=== PATIENT | female | born 1960 | race Hispanic/Latino ===

== ENCOUNTER 2017-12-15 18:18 | Emergency (ER) | payer BC ==
[2017-12-15 18:54] LABS: BASOPHILS % (AUTO) 1.9 % (0.0-5.0); EOSINOPHILS % (AUTO) 1.6 % (0.0-8.0); HEMATOCRIT 42.9 % (36-48); LYMPHOCYTES % (AUTO) 34.8 % (21.0-51.0); MEAN CORPUSCULAR HEMOGLOBIN 29.8 pg (27.0-33.0); MEAN CORPUSCULAR HGB CONC 32.9 g/dL (32.0-36.0); MEAN CORPUSCULAR VOLUME 90.6 fL (79-99); MONOCYTES % (AUTO) 5.6 % (3.0-13.0); NEUTROPHILS % (AUTO) 56.1 % (40.0-77.0); PLATELET COUNT (AUTO) 255 K/uL (130-400); RED BLOOD CELL COUNT(AUTO) 4.73 MIL/uL (4.00-5.50); RED CELL DISTRIBUTION WIDTH 13.1 % (11.0-15.5); WHITE BLOOD COUNT (AUTO) 6.9 K/uL (4.8-10.8)
[2017-12-15 19:05] LABS: CREATININE 0.7 mg/dL (0.5-1.5); POTASSIUM 3.8 mmol/L (3.5-5.1)
[2017-12-15 19:10] LABS: ALBUMIN 4.6 g/dL (3.5-5.0); BILIRUBIN,TOTAL 0.4 mg/dL (0.2-1.0); TOTAL PROTEIN, SERUM 8.6 g/dL (6.0-8.3)
[2017-12-15 19:12] LABS: INR 0.9 (0.85-1.15); PARTIAL THROMBOPLASTIN TIME 27.9 SEC (26.3-35.5); PROTHROMBIN TIME 9.5 SEC (9.6-11.6)
[2017-12-15 19:19] LABS: CREATINE KINASE, TOTAL 98 U/L (21-232); MYOGLOBIN 23 ng/mL (10-92); TROPONIN I < 0.04 ng/mL (0.00-0.06)
[2017-12-15 22:24] LABS: CREATINE KINASE, TOTAL 84 U/L (21-232); MYOGLOBIN 25 ng/mL (10-92); TROPONIN I < 0.04 ng/mL (0.00-0.06)
== END 2017-12-15 22:42 | disposition home or self-care (01) ==
LOC: EDH 18:18
DX: R07.89 Other chest pain (principal); Z88.0 Allergy status to penicillin; Z85.850 Personal history of malignant neoplasm of thyroid; Z98.890 Other specified postprocedural states
CPT/HCPCS: 36415; 71045; 80053; 82550; 83874; 84484; 85025; 85610; 85730; 93005; 99291

== ENCOUNTER 2018-03-02 05:51 | Day surgery (SDC) | payer BC ==
[2018-02-28 11:07] VITALS: BP 136/79
[2018-02-28 11:22] LABS: BASOPHILS % (AUTO) 2.6 % (0.0-5.0); EOSINOPHILS % (AUTO) 2.2 % (0.0-8.0); HEMATOCRIT 41.7 % (36-48); LYMPHOCYTES % (AUTO) 39.9 % (21.0-51.0); MEAN CORPUSCULAR HEMOGLOBIN 30.7 pg (27.0-33.0); MEAN CORPUSCULAR HGB CONC 33.8 g/dL (32.0-36.0); MEAN CORPUSCULAR VOLUME 90.9 fL (79-99); MONOCYTES % (AUTO) 8.3 % (3.0-13.0); PLATELET COUNT (AUTO) 255 K/uL (130-400); RED BLOOD CELL COUNT(AUTO) 4.59 MIL/uL (4.00-5.50); RED CELL DISTRIBUTION WIDTH 13.4 % (11.0-15.5); WHITE BLOOD COUNT (AUTO) 4.8 K/uL (4.8-10.8)
[~2018-03-02] VITALS: Ht 162.6 cm; Wt 70.8 kg
[2018-03-02] VITALS (17 sets, daily range): BP systolic 87–134; BP diastolic 51–89
[~2018-03-02 05:51] MED LIST: LEVO100T12 PO
[2018-03-02] MEDS ORDERED: LEVOFLOXACIN 500 MG/D5W 100 ML 100 ML ONE (06:45)
[2018-03-02] MEDS ORDERED: LACTATED RINGERS 1000ML 1,000 ML IV ONE (06:45)
[2018-03-02] MEDS ORDERED: CLINDAMYCIN 600 MG/D5% WATER 50 ML IV ONE (06:45)
[2018-03-02] MEDS ORDERED: STRONG IODINE SOLUTION 30ML BOTTLE ONE (08:04)
[2018-03-02] MEDS ORDERED: ACETIC ACID 0.25% 1,000 ML IRRIG.SOLN ONE (08:04)
[2018-03-02] MEDS ORDERED: PROPOFOL 10 MG/ML 20ML VIAL IV ONE ×2 (08:16→08:36)
[2018-03-02] MEDS ORDERED: LIDOCAINE PF 2% 5ML ABBOJECT ONE (08:22)
[2018-03-02] MEDS ORDERED: DEXAMETHASONE SOD PHOSPHATE 10MG/ML 1ML VIAL ONE (08:22)
[2018-03-02] MEDS ORDERED: ONDANSETRON HCL 4 MG/2 ML VIAL ONE ×2 (08:23→08:36)
[2018-03-02] MEDS ORDERED: FENTANYL CITRATE PF 50 MCG/1 ML 2ML VIAL ONE ×2 (08:25→08:37)
[2018-03-02] MEDS ORDERED: GLYCOPYRROLATE 1 MG/5 ML SYRINGE ONE ×2 (08:29→08:56)
[2018-03-02] MEDS ORDERED: MIDAZOLAM HCL 1 MG/ML 2ML VIAL ONE (08:36)
[2018-03-02] MEDS ORDERED: ROCURONIUM 10MG/1ML SYR 10 MG/ML ML ONE (08:37)
[2018-03-02] MEDS ORDERED: SUCCINYLCHOLINE 200MG/10ML SYR ONE (08:37)
--- NOTE | 2018-03-02 09:48 | NUR ---
PATIENT RETUNED FROM PACU IN NO DISTRESS, NO VAGINAL BLEEDING NOTED.
--- NOTE | 2018-03-02 10:19 | NUR ---
PATIENT DISCHARGED IN NO DISTRESS, NO VAGINAL BLEEDING NOTED.
== END 2018-03-02 10:20 | disposition home or self-care (01) ==
LOC: DAH 05:51
PROVIDERS: ATTEND Obstetrics & Gynecology
DX: N87.9 Dysplasia of cervix uteri, unspecified (principal); Z98.890 Other specified postprocedural states; Z83.3 Family history of diabetes mellitus; I21.3 ST elevation (STEMI) myocardial infarction of unspecified site; Z85.850 Personal history of malignant neoplasm of thyroid; Z88.0 Allergy status to penicillin
CPT/HCPCS: 36415; 57520; 85025; 86850; 86900; 86901; 88307; A4351; J0330; J1100; J1956; J2001; J2250; J2405 ×2; J2704 ×2; J3010 ×2; J3490 ×3; J7120